=== PATIENT | female | born 1935 | race Caucasian/White ===

== ENCOUNTER 2018-10-17 14:06 | Emergency (ER) | payer MEDICARE, OTHER ==
[2018-10-17 14:35] VITALS: RESP 18; TEMP 98; O2SAT 100
[2018-10-17] MEDS ORDERED: CLONAZEPAM 0.5 MG TAB PO PRN (14:59)
[2018-10-17] MEDS ORDERED: CLONAZEPAM 0.5 MG TAB ONE (15:01)
[2018-10-17 15:15] LABS: BASOPHILS % (AUTO) 1 % (0-3); EOSINOPHILS % (AUTO) 1 % (0-9); HEMATOCRIT 30 % (35-47); HEMOGLOBIN 9.3 gm/dl (12.0-15.5); LYMPHOCYTES % (AUTO) 12.3 % (10-50); MEAN CORPUSCULAR HEMOGLOBIN 28.9 pg (27.0-32.0); MEAN CORPUSCULAR HGB CONC 30.7 gm/dl (32.0-36.0); MEAN CORPUSCULAR VOLUME 94 fL (81-99); MONOCYTES % (AUTO) 7.1 % (0-12); NEUTROPHILS % (AUTO) 79.1 % (37-80)
[2018-10-17 15:38] LABS: ALBUMIN 3.7 gm/dl (3.4-5.0); BILIRUBIN,TOTAL 0.4 mg/dl (0.2-1.0); CALCIUM 8.8 mg/dl (8.5-10.1); CARBON DIOXIDE 19.8 mEq/L (21-32); CREATININE 3.24 mg/dl (0.60-1.00); POTASSIUM 4.7 mMol/L (3.5-5.1); THYROID STIMULATING HORMONE 4.026 uIU/ml (0.358-3.740); TOTAL PROTEIN 7.4 gm/dl (6.4-8.2)
[2018-10-17 16:06] LABS: APPEARANCE,URINE Clear; BILIRUBIN,URINE NEGATIVE (NEGATIVE); COLOR,URINE Yellow; GLUCOSE, URINE (UA) NEGATIVE (NEGATIVE); KETONES,URINE NEGATIVE (NEGATIVE); LEUKOCYTE ESTERASE ,URINE NEGATIVE (NEGATIVE); NITRATE,URINE NEGATIVE (NEGATIVE); OCCULT BLOOD,URINE TRACE INTACT (NEG-TRACE); PH,URINE 5.5; UROBILINOGEN,URINE 0.2 (0.2-1.0 EU)
[2018-10-17 16:25] LABS: BACTERIA NEGATIVE (< 1+); CRYSTALS NEGATIVE (0-3 AVE/HPF); EPITHELIAL CELLS 0-2 (SQUAMOUS); RBC,URINE NEG (0-3AV/HPF); WBC,URINE NEG (0-5AV/HPF)
[2018-10-17 16:51] VITALS: BP 123/62; PULSE 59
== END 2018-10-17 16:53 | disposition home or self-care (01) | DRG 880 ==
LOC: ED 14:06
DX: F41.8 Other specified anxiety disorders (principal); N18.9 Chronic kidney disease, unspecified; D63.1 Anemia in chronic kidney disease
CPT/HCPCS: 36415; 80053; 81001; 84443; 85025; 99283; A9270-GY